=== PATIENT | female | born 1950 | race Caucasian/White ===

== ENCOUNTER 2017-11-03 21:44 | Inpatient (IN) | payer MEDICARE, BC ==
[~2017-11-03] VITALS: Ht 152.4 cm; Wt 70.3 kg
--- NOTE | 2017-11-03 22:19 | NUR ---
PT BB FAMILY FROM HOME C/C "I BROKE MY LT ANKLE WHILE IN [place] AND SPOKE TO DR. DESAI WHO WILL PERFORM MY SURGERY". PT IS AAOX4. PAIN 11/08 IN LT ANKLE. +CMS. VSS. NO S/S OF ACUTE DISTRESS NOTED. PT PLACED ON MONITOR AND POX. RESP EVEN AND UNLABORED. WILL CONTINUE TO MONITOR PT. AWATING MD FOR EVAL.
--- NOTE | 2017-11-03 22:30 | NUR ---
MARÍA ELENA ANDERSON PAGED PER DR HELMS.
[2017-11-03 22:57] LABS: BASOPHILS % (AUTO) 0.1 % (0.0-2.0); EOSINOPHILS % (AUTO) 4.4 % (0.0-6.0); LYMPHOCYTES # (AUTO) 0.7 /CMM (0.8-4.8); LYMPHOCYTES % (AUTO) 14.6 % (20.0-44.0); MEAN CORPUSCULAR HGB CONC 32 g/dl (31.0-36.0); MEAN CORPUSCULAR VOLUME 69 fL (82-100); MONOCYTES # (AUTO) 0.3 /CMM (0.1-1.30); NEUTROPHILS # (AUTO) 3.6 /CMM (1.8-8.9); NEUTROPHILS % (AUTO) 73.9 % (43.0-81.0); PLATELET COUNT (AUTO) 460 /CMM (150-450); RDW COEFFICIENT OF VARIATION 18.9 (11.5-15.0); RED BLOOD CELL COUNT(AUTO) 2.57 MIL/uL (4.0-5.2); WHITE BLOOD COUNT (AUTO) 4.8 K/uL (4.3-11.0)
[2017-11-03 23:05] LABS: HEMATOCRIT 18 % (33-45); HEMOGLOBIN 5.6 g/dL (11.5-14.8)
[2017-11-03 23:08] LABS: CALCIUM, SERUM 8.3 mg/dL (8.5-10.1); CREATININE 0.8 mg/dL (0.6-1.3); POTASSIUM 3.6 mmol/L (3.5-5.1)
[2017-11-03 23:13] LABS: INR 0.96 (0.87-1.13)
--- NOTE | 2017-11-03 23:16 | NUR ---
CALLED [facility]AD[facility]IREZ CHECKROOM ATTENDANT WAS PAGED.
--- NOTE | 2017-11-03 23:22 | NUR ---
CALLED [facility] FOR PANEL CALL AND JAMES EMMANUEL WAS PAGED.
[2017-11-03] MEDS ORDERED: ONDANSETRON HCL/PF 4 MG/2 ML VIAL ONE (23:40)
[2017-11-03] MEDS ORDERED: MORPHINE SULFATE INJ 4 MG/ML DISP.SYRIN ONE (23:40)
[2017-11-03 23:50] LABS: LYMPHOCYTES % (MANUAL) 22 % (16-48); MONOCYTES % (MANUAL) 4 % (0-11.0); NEUTROPHILS % (MANUAL) 72 (42-76)
[2017-11-03 23:51] LABS: EOSINOPHILS % (MANUAL) 2 % (0-4)
[2017-11-04] VITALS (15 sets, daily range): BP systolic 95–150; BP diastolic 48–80
[2017-11-04] MEDS ORDERED: MORPHINE SULFATE INJ 2 MG/ML DISP.SYRIN IV ONE
[2017-11-04] MEDS ORDERED: ONDANSETRON HCL/PF 4 MG/2 ML VIAL IV ONE
--- NOTE | 2017-11-04 00:20 | NUR ---
Patient is resting comfortably in bed with eyes closed. Easily aroused. VSS. BLANKETS PROVIDED TO PT.
--- NOTE | 2017-11-04 01:10 | NUR ---
BLOOD PRODUCTS AND PT VERIFIED WITH ADRY BLAKE. BLOOD TRANSFUSION STARTED AT 0110. VSS. BLOOD TRANSFUSION TEACHING PROVIDED TO PT. WILL CONTINUE TO MONITOR PT.
--- NOTE | 2017-11-04 01:12 | NUR ---
report given to soto thomas for continuaiton of care.
--- NOTE | 2017-11-04 01:25 | NUR ---
PT'S VSS. NO S/S OF BLOOD TRANSFUSION REACTIONS. WILL CONTINUE TO MONITOR PT.
--- NOTE | 2017-11-04 02:00 | NUR ---
TELE/RN OPENING NOTES PT RECEIVED TO UNIT FROM ER. A/OX4. BREATHING EVEN AND UNLABORED. NOTES PAIN 6/10 TO LEFT ANKLE. RECEIVED IV MORPHINE IN ER. DENIES SOB AT THIS TIME. IV TO LAC PATENT AND INTACT WITH ONGOING BLOOD TRANSFUSION AT 125ML/HR. NO S/S OF ADVERSE REACTION NOTED. ORIENTED PT TO ROOM AND CALL LIGHT. SIDE RAILS UPX2. BED IN LOW/LOCKED POSITION WITH CALL LIGHT IN REACH. WILL CONTINUE TO MONITOR Addendum: 11/04/17 at 0258 by RIGO OSORIO RN LEFT ANKLE SPLINTED AND ELEVATED ON PILLOW
[2017-11-04] MEDS ORDERED: SERT50TA PO (02:40)
[2017-11-04] MEDS ORDERED: METF-440 PO (02:40)
[2017-11-04] MEDS ORDERED: OMEP20CA10 PO (02:40)
[2017-11-04] MEDS ORDERED: TRAM1TAB PO (02:40)
[2017-11-04] MEDS ORDERED: ACET-907 PO (02:40)
[2017-11-04] MEDS ORDERED: IRBE1TAB41 PO (02:40)
[2017-11-04] MEDS ORDERED: RANI150T43 PO (02:40)
[2017-11-04] MEDS ORDERED: LIDO700A30 TP (02:40)
[2017-11-04] MEDS ORDERED: LORA-545 PO (02:40)
--- NOTE | 2017-11-04 02:57 | NUR ---
TELE/RN NOTES MEDRECON AND BELONGINGS LIST COMPLETED.
--- NOTE | 2017-11-04 03:21 | NUR ---
TELE/RN NOTES PAGED JAMES EMMANUEL FOR ADMITTING ORDERED. AWAITING CALL BACK
--- NOTE | 2017-11-04 03:40 | NUR ---
TELE/RN NOTES PAGED JAMES EMMANUEL AGAIN, AWAITING CALL BACK. PT C/O PAIN TO LEFT ANKLE 01/08
--- NOTE | 2017-11-04 03:54 | NUR ---
TELE/RN NOTES JAMES EMMANUEL CALLED BACK WITH ORDERS FOR MORPHINE 2MG IV Q3H PRN AND ZOFRAN 4MG IV Q4H PRN ORDERS NOTED AND READ BACK PER PROTOCOL, WILL CARRY OUT ORDERED. WILL INPUT REMAINING ADMITTING ORDERS
[2017-11-04] MEDS ORDERED: ONDANSETRON HCL/PF 4 MG/2 ML VIAL IV PRN (04:00)
[2017-11-04] MEDS: MORPHINE SULFATE INJ 2 MG/ML DISP.SYRIN IV PRN ×5 (04:08→22:06)
[2017-11-04] MEDS ORDERED: HYDROCODONE/APAP 10/325MG 1 EA TABLET PO PRN (04:30)
[2017-11-04] MEDS ORDERED: ONDANSETRON HCL/PF 4 MG/2 ML VIAL IVP PRN (04:30)
[2017-11-04] MEDS ORDERED: Z GUARD REMEDY 2 OZ OINT TP PRN (04:30)
[2017-11-04] MEDS ORDERED: ACETAMINOPHEN W/ CODEINE#3 1 EA TABLET PO PRN (04:30)
[2017-11-04] MEDS ORDERED: ACETAMINOPHEN 325 MG TABLET PO PRN (04:30)
--- NOTE | 2017-11-04 04:40 | NUR ---
MS/RN NOTES 1 UNIT OF PRBC COMPLETED. PAPERFORM COMPLETED AND PLACED IN THE CHART. PT WITH NO ADVERSE REACTIONS. YL=014/61, HR=65, RR=18, T=98.0, SPO2 97% ON 2L O2. PAIN TO LEFT ANKLE NOTED AT 5/10, PT IS COMFORTABLE AT THIS TIME
[2017-11-04 07:24] LABS: BASOPHILS % (AUTO) 0.6 % (0.0-2.0); EOSINOPHILS % (AUTO) 4.2 % (0.0-6.0); HEMATOCRIT 21 % (33-45); LYMPHOCYTES # (AUTO) 0.6 /CMM (0.8-4.8); LYMPHOCYTES % (AUTO) 14.6 % (20.0-44.0); MEAN CORPUSCULAR HGB CONC 32 g/dl (31.0-36.0); MEAN CORPUSCULAR VOLUME 71 fL (82-100); MONOCYTES # (AUTO) 0.3 /CMM (0.1-1.30); MONOCYTES % (AUTO) 7.1 % (2.0-12.0); NEUTROPHILS # (AUTO) 3.1 /CMM (1.8-8.9); NEUTROPHILS % (AUTO) 73.5 % (43.0-81.0); PLATELET COUNT (AUTO) 458 /CMM (150-450); RDW COEFFICIENT OF VARIATION 18.9 (11.5-15.0); RED BLOOD CELL COUNT(AUTO) 2.98 MIL/uL (4.0-5.2); WHITE BLOOD COUNT (AUTO) 4.2 K/uL (4.3-11.0)
[2017-11-04 07:36] LABS: HEMOGLOBIN 6.8 g/dL (11.5-14.8)
[2017-11-04 07:39] LABS: IRON, SERUM 37 ug/dl (50-175); TOTAL IRON BINDING CAPACITY 439 ug/dl (250-450)
--- NOTE | 2017-11-04 07:39 | NUR ---
RN MS OPENING NOTES RECEIVED PATIENT IN BED AWAKE. ALERT AND ORIENTED X4. VERBALLY RESPONSIVE, ABLE TO MAKE NEEDS KNOWN. BREATHING EVEN AND UNLABORED - ON 2L OF OXYGEN VIA NC - O2SAT 98%. COMPLAINED OF PAIN 5/10 ON THE LEFT ANKLE BUT DOES NOT WANT PAIN MEDICATION AT THE MOMENT. IV TO LAC PATENT AND INTACT WITH ONGOING BLOOD TRANSFUSION AT 100ML/HR. NO S/S OF ADVERSE REACTION NOTED. VITAL SIGNS STABLE. BP 104/48, HR 67, RR 20, TEMP 98.5F. SAFETY PRECAUTIONS IN PLACE. BED IN LOW LOCKED POSITION. CALL LIGHT WITHIN EASY REACH. WILL CONTINUE TO MONITOR.
--- NOTE | 2017-11-04 07:40 | NUR ---
MS/RN CLOSING NOTES PT AWAKE, A/OX4. PLACED ON 2L O2 VIA NC FOR O2 SUPPORT, BREATHING EVEN AND UNLABORED. DENIES SOB. PER ER NURSE, PT DESATTED TOO 88% POST MORPHINE ADMINISTRATION. NOTES PAIN TO LEFT ANKLE 5/10, DOES NOT WANT PAIN MEDICATION AT THIS TIME. WILLING TO WAIT FOR ANOTHER HOUR. EDUCATION PROVIDED ON PAIN MANAGEMENT, PT VERBALIZED UNDERSTANDING. LEFT ANKLE WITH SPLINT AND ELEVATED ON PILLOW. 2ND UNIT OF PRBC CURRENTLY INFUSING TO LAC AT 100ML/HR. PT TOLERATING, NO ADVERSE REACTIONS NOTED. PT HAS 1 MORE UNIT OF PRBC'S ORDERED. ALL NEEDS MET. BED IN LOW/LOCKED POSITION WITH CALL LIGHT IN REACH. SIDE RAILS UPX2. ENDORSED TO DAY SHIFT RN GABY.
[2017-11-04 08:18] LABS: ALBUMIN 3.1 g/dL (3.4-5.0); BILIRUBIN,TOTAL 0.4 mg/dL (0.2-1.0); PHOSPHORUS 2.7 mg/dL (2.5-4.9); POTASSIUM 3.9 mmol/L (3.5-5.1); TOTAL PROTEIN, SERUM 6.4 g/dL (6.4-8.2)
[2017-11-04 08:45] LABS: CREATININE 0.8 mg/dL (0.6-1.3)
[2017-11-04 09:28] LABS: EOSINOPHILS % (MANUAL) 3 % (0-4); LYMPHOCYTES % (MANUAL) 11 % (16-48); MONOCYTES % (MANUAL) 3 % (0-11.0); NEUTROPHILS % (MANUAL) 83 (42-76)
[2017-11-04 09:38] LABS: THYROID STIMULATING HORMONE 5.611 uIU/mL (0.358-3.74)
[2017-11-04] MEDS: LORATADINE 10 MG TABLET PO SCH (09:49)
[2017-11-04] MEDS: TRAMADOL HCL 50 MG TABLET PO PRN ×2 (13:36→19:38)
[2017-11-04] MEDS: IV NS 0.9% 1,000 ML IV PRN (16:24)
[2017-11-04] MEDS: SOD FERRIC GLUC 125 MG in IV NS 0.9% 100 ML IV SCH (16:24)
[2017-11-04] MEDS: LIDOCAINE 5% (PATCH) 1 EA PATCH TP SCH (17:18)
[2017-11-04] MEDS ORDERED: SERTRALINE HCL 50 MG TABLET PO ONE (17:30)
--- NOTE | 2017-11-04 18:56 | NUR ---
RN MS CLOSING NOTES PATIENT AWAKE AND ORIENTED X4. CURRENTLY ON ROOM AIR WITH O2SAT 98%. WILL PUT NASAL CANNULA FOR SUPPORT WHEN SHE DESIRES. FREQUENT COMPLAINTS OF LEFT ANKLE PAIN 03/10. LAST MORPHINE GIVEN WAS 1815 - PATIENTS STATES EFFECTIVE. TRANSFUSED LAST 1 UNIT OF PRBC. TOLERATED WELL. RETA CAME FOR ORTHO CONSULT. PATIENT DECIDED TO DO SURGICAL FIXATION ON THE LEFT ANKLE WITH DR. INGRAM - STILL WAITING ON ORDERS. CBC AND LIPID PANEL SCHEDULED FOR TOMORROW AM. MEDICATIONS FROM HOME RESUMED WITH MD'S APPROVAL EXCEPT FOR METFORMIN. IN ON LEFT AC #18. INTACT AND PATENT. INFUSING NS @ 75ML/HR. ALL OTHER NEEDS ATTENDED TO. KEPT CLEAN DRY AND COMFORTABLE. SAFETY PRECAUTIONS IN PLACE. BED IN LOWEST LOCKED POSITION. CALL LIGHT WITHIN EASY REACH. WILL ENDORSE TO ONCOMING RN FOR CONTINUITY OF CARE.
--- NOTE | 2017-11-04 19:15 | NUR ---
MS/RN OPENING NOTES PT RECEIVED LAYING IN BED WITHE EYES CLOSED. FAMILY AT BEDSIDE. A/OX4. CURRENTLY ON ROOM AIR, DENIES SOB, BREATHING EVEN AND UNLABORED. C/O PAIN 8/10 TO LEFT ANKLE, REQUESTING PAIN MEDICATION. PT REQUESTING ULTRAM WHEN DUE. NWB TO LLE. DR. EARL AT BEDSIDE TO ASSESS PT. IV TO LAC PATENT AND INTACT RUNNING IVF ORDERED. PT FOR SURGERY TOMORROW WITH DR. EARL. PT AWARE AND VERBALIZES UNDERSTANDING. CONSENTS TO BED SIGNED BY PT. PT AWARE OF NPO STATUS POST MIDNIGHT. BED IN LOW/LOCKED POSITION WITH CALL LIGHT IN REACH. SIDE RAILS UPX2. WILL CONTINUE TO MONITOR
[2017-11-04 19:42] LABS: BASOPHILS % (AUTO) 0.1 % (0.0-2.0); HEMATOCRIT 28 % (33-45); HEMOGLOBIN 9.1 g/dL (11.5-14.8); LYMPHOCYTES # (AUTO) 0.7 /CMM (0.8-4.8); LYMPHOCYTES % (AUTO) 11.8 % (20.0-44.0); MEAN CORPUSCULAR HGB CONC 32 g/dl (31.0-36.0); MEAN CORPUSCULAR VOLUME 74 fL (82-100); MONOCYTES # (AUTO) 0.4 /CMM (0.1-1.30); MONOCYTES % (AUTO) 5.8 % (2.0-12.0); NEUTROPHILS # (AUTO) 4.8 /CMM (1.8-8.9); NEUTROPHILS % (AUTO) 78.3 % (43.0-81.0); PLATELET COUNT (AUTO) 477 /CMM (150-450); RDW COEFFICIENT OF VARIATION 19.4 (11.5-15.0); RED BLOOD CELL COUNT(AUTO) 3.86 MIL/uL (4.0-5.2); WHITE BLOOD COUNT (AUTO) 6.1 K/uL (4.3-11.0)
[2017-11-04] MEDS: MAG HYDROX/AL HYDROX/SIMETH 30 ML UDC PO PRN (20:22)
--- NOTE | 2017-11-04 20:24 | NUR ---
MS/RN NOTES PT DOWN FOR CT
--- NOTE | 2017-11-04 20:25 | NUR ---
MS/RN NOTES DR. EARL CALLED. INFORMED HIM THAT PT JUST WENT DOWN FOR CT OF ANKLE. ASKED IF HE WANTED ME TO NOTIFY HIM OF RESULTS OF CT AND STAT CBC HE ORDERED. HE SAID HE WOULD TAKE A LOOK AT THEM ON HIS OWN. NO NEW ORDERS
--- NOTE | 2017-11-04 21:55 | NUR ---
MS/RN NOTES PT RETURNED FROM CT IN STABLE CONDITION. Addendum: 11/04/17 at 2230 by RIGO OSORIO RN *WRONG TIME- PT RETURNED AT 2054*
[2017-11-05] MEDS: MORPHINE SULFATE INJ 2 MG/ML DISP.SYRIN IV PRN ×2 (01:34→06:34)
[2017-11-05] MEDS: TRAMADOL HCL 50 MG TABLET PO PRN (05:03)
[2017-11-05 06:20] LABS: BASOPHILS % (AUTO) 0.2 % (0.0-2.0); EOSINOPHILS % (AUTO) 2.6 % (0.0-6.0); HEMATOCRIT 28 % (33-45); HEMOGLOBIN 8.9 g/dL (11.5-14.8); LYMPHOCYTES # (AUTO) 0.7 /CMM (0.8-4.8); LYMPHOCYTES % (AUTO) 9.2 % (20.0-44.0); MEAN CORPUSCULAR HGB CONC 32 g/dl (31.0-36.0); MEAN CORPUSCULAR VOLUME 74 fL (82-100); MONOCYTES # (AUTO) 0.4 /CMM (0.1-1.30); MONOCYTES % (AUTO) 5.9 % (2.0-12.0); NEUTROPHILS % (AUTO) 82.1 % (43.0-81.0); PLATELET COUNT (AUTO) 486 /CMM (150-450); RDW COEFFICIENT OF VARIATION 19.6 (11.5-15.0); RED BLOOD CELL COUNT(AUTO) 3.73 MIL/uL (4.0-5.2); WHITE BLOOD COUNT (AUTO) 7.3 K/uL (4.3-11.0)
[2017-11-05 06:30] LABS: ALBUMIN 2.9 g/dL (3.4-5.0); BILIRUBIN,TOTAL 0.3 mg/dL (0.2-1.0); CALCIUM, SERUM 8.2 mg/dL (8.5-10.1); CREATININE 0.7 mg/dL (0.6-1.3); PHOSPHORUS 2.4 mg/dL (2.5-4.9); POTASSIUM 3.8 mmol/L (3.5-5.1); TOTAL PROTEIN, SERUM 6.2 g/dL (6.4-8.2)
[2017-11-05 06:43] LABS: THYROID STIMULATING HORMONE 2.325 uIU/mL (0.358-3.74)
--- NOTE | 2017-11-05 06:55 | NUR ---
MS/RN CLOSING NOTES PT AWAKE, A/OX4. ENCOURAGED PT TO KEEP 2L O2 VIA NC, BREATHING EVEN AND UNLABORED. DENIES SOB. PAIN MEDICATION PROVIDED THROUGHOUT SHIFT. IV TO LAC INFILTRATED. REINSERTED TO RFA #20, IVF INFUSING ORDERED. PT FOR LEFT ANKLE ORIF TODAY AT [address] EARL. PT AWARE, CONSENTS SIGNED, CHECKLIST COMPLETED AND IN THE CHART. PT KEPT NPO POST MIDNIGHT. LIDOCAINE PATCH REMOVED ORDERED. BED REMAINS IN LOW/LOCKED POSITION WITH CALL LIGHT IN REACH. SIDE RAILS UPX2. WILL ENDORSE TO DAY SHIFT RN GABY.
[2017-11-05] MEDS: PANTOPRAZOLE 40 MG TABLET.DR PO SCH ×2 (07:30→12:52)
--- NOTE | 2017-11-05 07:42 | NUR ---
RN OPENING NOTES RECEIVED PT. PT IS STABLE AND RESTING IN BED. A/OX4. NO S/S OF RESP DISTRESS/SOB. PT HAS C/O PAIN ON L ANKLE, RECENTLY MANAGED WITH ICE THERAPY/MEDICATION, WILL CONTINUE TO MONITOR. SCHEDULED FOR SX FOR LEFT ANKLE REPAIR TODAY , 11/05/17. CONSENT AND CHECKLIST COMPLETED. SAFETY MEASURES IN PLACE, CALL LIGHT IN REACH. WILL CONTINUE TO MONITOR.
[2017-11-05 08:00] VITALS: BP 128/62
--- NOTE | 2017-11-05 08:30 | NUR ---
RN NOTES PT TAKEN TO OR BY PRE-OP STAFF FOR LEFT ANKLE ORIF. PT LEFT UNIT IN [facility] ACCOMPANIED BY SURGERY STAFF.
[2017-11-05] MEDS: SERTRALINE HCL 50 MG TABLET PO SCH ×2 (09:00→20:33)
[2017-11-05] MEDS: LOSARTAN/HCTZ 50-12.5MG/ 1 EA TABLET PO SCH (09:00)
[2017-11-05] MEDS: LORATADINE 10 MG TABLET PO SCH (09:00)
[2017-11-05] MEDS ORDERED: BACITRACIN 50000 UNITS/VIAL ONE (09:21)
[2017-11-05] MEDS ORDERED: BUPIVACAINE 0.25% 75 MG/30 ML VIAL ONE (09:21)
[2017-11-05] MEDS ORDERED: MORPHINE SULFATE INJ 4 MG/ML DISP.SYRIN IV PRN ×2 (09:30→11:00)
[2017-11-05] MEDS ORDERED: HYDROMORPHONE INJ 2 MG/ML DISP.SYRIN ONE (10:04)
[2017-11-05 11:30] VITALS: BP 112/63
[2017-11-05] MEDS: MAG HYDROX/AL HYDROX/SIMETH 30 ML UDC PO PRN (11:46)
[2017-11-05] MEDS: ACETAMINOPHEN 325 MG TABLET PO SCH ×2 (11:51→18:00)
[2017-11-05] MEDS: SOD FERRIC GLUC 125 MG in IV NS 0.9% 100 ML IV SCH (14:58)
[2017-11-05 16:00] VITALS: BP 117/64
[2017-11-05] MEDS ORDERED: K PHOS NEUTRAL 250 MG TABLET PO ONE (16:00)
[2017-11-05] MEDS: ANCEF 1 GM/50 ML D5W IV SCH ×2 (16:32)
[2017-11-05] MEDS: LIDOCAINE 5% (PATCH) 1 EA PATCH TP SCH (16:41)
--- NOTE | 2017-11-05 18:43 | NUR ---
RN CLOSING NOTES PT IS IN BED RESTING. NO S/S OF RESP DISTRESS OR SOB. PT HAS C/O CONSTIPATION, WILL F/U WITH MD FOR STOOL SOFTENER REQUEST. PT PAIN MANAGED WITH IVP MORPHINE 4MG LAST GIVEN AT 1630. PT IS S/P L ANKLE REDUCTION, EXTERNAL FIXATION TO BE PERFORMED NEXT WEEK ON /. CONT IV ABX AND PAIN MANAGEMENT UNTIL THEN. SAFETY MEASURES IN PLACE, CALL LIGHT WITHIN REACH. WILL ENDORSE TO EXTERNAL GRINDER FOR GABY.
--- NOTE | 2017-11-05 19:30 | NUR ---
RN NOTES RECEIVED PATIENT IN AWAKE. AO X 3, ABLE TO MAKE NEEDS KNOWN. NO ACUTE DISTRESS NOTED. DENIES ANY PAIN AT THIS TIME. LEFT FOOT WITH RODS DUE TO EXTERNAL FIXATION DONE 11/05/17. LEFT FOOT ELEVATED ORDERED. IV SITE PATENT, INTACT; IVF INFUSING ORDERED. ON LOW BED WITH BILATERAL UPPER SIDE RAILS UP. CALL CARR WITHIN EASY REACH. WILL CONTINUE TO MONITOR.
[2017-11-05 20:00] VITALS: BP 140/76
--- NOTE | 2017-11-05 21:23 | NUR ---
RN NOTES PATIENT C/O 11/08 LEFT FOOT PAIN. MONICA JUSTIN MADE AWARE WITH NEW ORDER TO CHANGE MORPHINE 4 MG IV TO Q 4 HOURS, NOTED AND CARRIED OUT. PATIENT MADE AWARE.
[2017-11-05] MEDS: MORPHINE SULFATE INJ 4 MG/ML DISP.SYRIN IV PRN (21:42)
[2017-11-06] MEDS: ANCEF 1 GM/50 ML D5W IV SCH ×4 (01:00→08:05)
[2017-11-06] MEDS: IV NS 0.9% 1,000 ML IV PRN (02:43)
[2017-11-06] MEDS: MORPHINE SULFATE INJ 4 MG/ML DISP.SYRIN IV PRN ×3 (02:49→15:42)
--- NOTE | 2017-11-06 05:51 | NUR ---
RN NOTES RECEIVED PATIENT IN AWAKE. AO X 3, ABLE TO MAKE NEEDS KNOWN. NO ACUTE DISTRESS NOTED. DENIES ANY PAIN AT THIS TIME. LEFT FOOT WITH RODS DUE TO EXTERNAL FIXATION DONE 11/05/17. LEFT FOOT ELEVATED ORDERED. IV SITE PATENT, INTACT; IVF INFUSING ORDERED. ON LOW BED WITH BILATERAL UPPER SIDE RAILS UP. CALL CARR WITHIN EASY REACH. WILL CONTINUE TO MONITOR. Addendum: 11/06/17 at 0553 by DARRIUS SOUSA RN CORRECT TIME: 11/05/171929
[2017-11-06] MEDS: ACETAMINOPHEN 325 MG TABLET PO SCH ×5 (06:00→23:28)
--- NOTE | 2017-11-06 06:36 | NUR ---
RN NOTES PATIENT ASLEEP, EASILY AROUSABLE. RESPIRATIONS EVEN. NO SIGNS OF PAIN NOTED. IVF INFUSING ORDERED. LEFT FOOT ELEVATED; IN FUNCTIONAL ALIGNMENT. DUE MED GIVEN WITH NO ASE NOTED. NEEDS ATTENDED. KEPT CLEAN, DRY, AND COMFORTABLE. SAFETY PRECAUTIONS AND COMFORT MEASURES IN PLACE. WILL GIVE REPORT TO DAY SHIFT FOR CONTINUITY OF CARE.
[2017-11-06 07:07] LABS: BASOPHILS % (AUTO) 0.3 % (0.0-2.0); EOSINOPHILS % (AUTO) 0.9 % (0.0-6.0); HEMATOCRIT 27 % (33-45); HEMOGLOBIN 8.5 g/dL (11.5-14.8); LYMPHOCYTES # (AUTO) 0.5 /CMM (0.8-4.8); LYMPHOCYTES % (AUTO) 6.6 % (20.0-44.0); MEAN CORPUSCULAR HGB CONC 32 g/dl (31.0-36.0); MEAN CORPUSCULAR VOLUME 77 fL (82-100); MONOCYTES # (AUTO) 0.4 /CMM (0.1-1.30); MONOCYTES % (AUTO) 5.7 % (2.0-12.0); NEUTROPHILS # (AUTO) 6.7 /CMM (1.8-8.9); NEUTROPHILS % (AUTO) 86.5 % (43.0-81.0); PLATELET COUNT (AUTO) 488 /CMM (150-450); RDW COEFFICIENT OF VARIATION 20.4 (11.5-15.0); RED BLOOD CELL COUNT(AUTO) 3.47 MIL/uL (4.0-5.2); WHITE BLOOD COUNT (AUTO) 7.7 K/uL (4.3-11.0)
--- NOTE | 2017-11-06 07:10 | NUR ---
RN NOTES PT IS LAYING DOWN IN BED, RESTING COMFORTABLY. PT ON RA, RESPIRATIONS ARE EVEN AND UNLABORED. IV ON RFA INTACT AND RUNNING NS @ 75ML/HR. SURGICAL SITE IS CLEAN AND DRY, NO SIGNS OF INFECTION NOTED. NO SIGNS OF DISTRESS NOTED. SAFETY MEASURES ARE IN PLACE, CALL LIGHT IS IN REACH. WILL CONTINUE TO MONITOR.
[2017-11-06 07:35] LABS: CALCIUM, SERUM 8.2 mg/dL (8.5-10.1); CREATININE 0.7 mg/dL (0.6-1.3); PHOSPHORUS 2.6 mg/dL (2.5-4.9); POTASSIUM 4.1 mmol/L (3.5-5.1)
[2017-11-06 08:00] VITALS: BP 125/78
[2017-11-06] MEDS: PANTOPRAZOLE 40 MG TABLET.DR PO SCH (08:04)
[2017-11-06] MEDS: SERTRALINE HCL 50 MG TABLET PO SCH (08:05)
[2017-11-06] MEDS: LORATADINE 10 MG TABLET PO SCH (08:07)
[2017-11-06] MEDS: LOSARTAN/HCTZ 50-12.5MG/ 1 EA TABLET PO SCH (08:07)
[2017-11-06] MEDS: ENOXAPARIN SODIUM 40 MG/0.4 ML DISP.SYRIN SQ SCH (08:09)
[2017-11-06 08:13] VITALS: BP 125/78
[2017-11-06] MEDS ORDERED: AVALIDE PO SCH (09:00)
[2017-11-06] MEDS: TRAMADOL HCL 50 MG TABLET PO PRN ×2 (11:52→20:29)
[2017-11-06] MEDS ORDERED: MAGNESIUM HYDROXIDE 30 ML UDC PO PRN (12:00)
[2017-11-06 13:19] LABS: *HGBFR CHEMOGLOBIN SOLUBILITY Negative (Negative); *HGBFRC HEMOGLOBIN A 98.3 % (96.4-98.8); *HGBFRC HEMOGLOBIN A2 1.7 % (1.8-3.2)
[2017-11-06] MEDS: SOD FERRIC GLUC 125 MG in IV NS 0.9% 100 ML IV SCH (14:25)
[2017-11-06] MEDS: LIDOCAINE 5% (PATCH) 1 EA PATCH TP SCH (16:50)
--- NOTE | 2017-11-06 18:43 | NUR ---
RN NOTES PT IS LAYING DOWN IN BED, AWAKE AND ALERT, RESTING COMFORTABLY. PT ON 2L O2, RESPIRATIONS ARE EVEN AND UNLABORED. IV ON RFA INTACT AND SL, PER PT REQUEST, DOES NOT WANT IV FLUIDS AT THIS TIME. ENCOURAGED ORAL INTAKE. MEDS GIVEN ORDERED AND ALL PT NEEDS MET. MORPHINE GIVEN FOR PAIN CONTROL, PT STATES PAIN IS A 3, TOLERABLE AT THIS TIME. DR. EARL SAW SURGICAL SITE AND CONSULTED PT ABOUT 2ND SURGERY, POSSIBLY ON THURSDAY. DRESSING CHANGE WAS DONE PER DR. EARL'S ORDER. NO SIGNS OF INFECTION NOTED AT SURGICAL MARINA SITES. PER DR. EARL, PT IS ABLE TO GET UP IN WHEELCHAIR WITH ASSISTANCE, WITH ANKLE ELEVATED IN CHAIR. NO SIGNS OF DISTRESS NOTED WITH PT. SAFETY MEASURES ARE IN PLACE, CALL LIGHT IS IN REACH. WILL CONTINUE TO MONITOR.
--- NOTE | 2017-11-06 19:15 | NUR ---
MS RN OPENING NOTES: RECEIVED PT IN BED AND IS ON 2LPM VIA NC. PT IS AWAKE AND IS RESTING AT THIS TIME. PT IS A/OX4. PT HAS IV ON RIGHT FOREARM #20G BUT DOES NOT WANT TO BE CONNECTED TO IV FLUIDS AT THIS TIME. EXPLAINED TO PT RISKS AND BENEFITS AND PT STILL REFUSING. WILL TRY AT ANOTHER TIME. PT HAS RODS ON L FOOT. CALL LIGHT WITHIN PT'S REACH. BED KEPT IN LOW, LOCKED POSITION, AND SIDE RAILS X 2UP. WILL CONTINUE TO MONITOR PT.
[2017-11-06 20:00] VITALS: BP 134/72
--- NOTE | 2017-11-06 20:32 | NUR ---
MS RIDER NOTES: PT COMPLAINING OF 5/10 ANKLE PAIN AND REQUESTED FOR TRAMADOL. PT WAS ADMINISTERED TRAMADOL 50MG PO. WILL CONTINUE TO MONITOR PT. Addendum: 11/06/17 at 2032 by TIFF SHAFER RN L ANKLE PAIN.
--- NOTE | 2017-11-06 23:29 | NUR ---
MS RN NOTES: PT REFUSING TYLENOL. EXPLAINED TO PT RISKS AND BENEFITS OF MED X3. PT STILL REFUSING. INFORMED HER THAT WE WILL HAVE TO MONITOR HER TEMP WELL. PT UNDERSTOOD.
[2017-11-07] MEDS: TRAMADOL HCL 50 MG TABLET PO PRN ×4 (00:40→21:13)
--- NOTE | 2017-11-07 00:40 | NUR ---
MS RN NOTES: PT COMPLAINING OF 5/10 R ANKLE PAIN. PT WAS ADMINISTERED TRAMADOL 50MG PO. WILL CONTINUE TO MONITOR PT.
[2017-11-07] MEDS: ACETAMINOPHEN 325 MG TABLET PO SCH ×3 (05:43→18:00)
--- NOTE | 2017-11-07 06:47 | NUR ---
MS RN CLOSING NOTES: ALL NEEDS WERE ATTENDED AND ANTICIPATED FOR. PT ON ROOM AIR AND TOLERATING WELL. PT KEPT CLEAN, DRY, AND COMFORTABLE. PT HAS IV AND REMAINS INTACT. PT STILL REFUSING TO BE CONNECTED TO IV FLUIDS SHE IS HYDRATING AND DRINKING WATER PO. XEROFORM AND KERLIX REMAINS ON L FOOT AROUND SURGICAL RODS. PT IS A/OX4 AND RESTING IN BED AT THIS TIME. CALL LIGHT WITHIN PT'S REACH. BED KEPT IN LOW, LOCKED POSITION, AND SIDE RAILS X 2UP. WILL ENDORSE TO AM NURSE FOR GABY.
[2017-11-07] MEDS: PANTOPRAZOLE 40 MG TABLET.DR PO SCH (07:32)
[2017-11-07 08:00] VITALS: BP 154/81
[2017-11-07] MEDS: LORATADINE 10 MG TABLET PO SCH (08:00)
[2017-11-07] MEDS: SERTRALINE HCL 50 MG TABLET PO SCH (08:07)
[2017-11-07] MEDS: ENOXAPARIN SODIUM 40 MG/0.4 ML DISP.SYRIN SQ SCH (08:08)
--- NOTE | 2017-11-07 08:16 | NUR ---
RN OPENING NOTES RECEIVED PT. IN BED A&OX4. BREATHING UNLABORED, AND EVENLY ON ROOM AIR. NO S/S OF ACUTE DISTRESS. PT. DENIES PAIN. IV ACCESS ON RIGHT FOREARM INTACT. PT. HAS A DVT PUMP ON RIGHT LE. PT. WAS SEEN AND EXAMINED BY [employer] INTEGRATION DEVELOPER. PT. HAS AN EXTERNAL FIXATOR ON THE LEFT LOWER EXTREMITY POST OP 11/05/17. BED IS IN LOWEST, AND LOCKED POSITION. 2 SIDE RAILS UP. INSTRUCTED PT. TO USE CALL LIGHT FOR ASSISTANCE. ALL NEEDS MET. WILL CONTINUE TO ASSESS AND MONITOR.
--- NOTE | 2017-11-07 08:46 | NUR ---
RN NOTES PT. WAS TRANSFERRED FROM BED TO CHAIR WITHOUT COMPLICATIONS. PT. LEFT LEG WAS COMPLETELY IMMOBILIZED AND WAS SUPPORTED DURING TRANSFER. LEFT LEG CONTINUED TO STAY ELEVATED IN SITTING POSITION.
--- NOTE | 2017-11-07 09:41 | NUR ---
RN NOTES PT. WAS TRANSFERRED BACK INTO BED 3 PERSON ASSIST, WITHOUT COMPLICATIONS. ALL NEEDS MET. PT.'S LEFT LEG WAS ELEVATED ON 2 PILLOWS. PT. USED THE BEDSIDE COMMODE BEFORE TRANSFER, AND HAD ONE SMALL BM.
--- NOTE | 2017-11-07 10:27 | NUR ---
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 She wants to wait to speak to keo. Ghada MERCADO.
[2017-11-07] MEDS: SOD FERRIC GLUC 125 MG in IV NS 0.9% 100 ML IV SCH (14:24)
[2017-11-07 16:00] VITALS: BP 121/65
[2017-11-07] MEDS: LIDOCAINE 5% (PATCH) 1 EA PATCH TP SCH (16:15)
--- NOTE | 2017-11-07 19:35 | NUR ---
MS RN OPENING NOTES: PATIENT IN BED, AOX4, ON O2 AT 2 LPM VIA NC, BREATHING EVEN AND UNLABORED, BREATH SOUNDS CLEAR TO AUSCULTATION. PATIENT APPEARS CALM AND IN NO DISTRESS, DENIES PAIN. PIV OVER RFA G20 INTACT AND PATENT TO FLUSH. NOTED LEFT LOWER LEG WITH METAL FIXATORS, WITH CLEAN AND INTACT DRESSING, ELEVATED ON 2 PILLOWS. APPLIED ICE PACK. PROVIDED FOR COMFORT AND SAFETY. BED IN LOWEST AND LOCKED POSITION, SIDERAILS UP X 3, CALL LIGHT WITHIN REACH. WILL CONT TO MONITOR.
--- NOTE | 2017-11-07 19:37 | NUR ---
RN CLOSING NOTES PT. IS IN BED A&OX4. BREATHING UNLABORED, AND EVENLY ON OXYGEN 2L/MIN VIA NASAL CANNULA. NO S/S OF ACUTE DISTRESS. PT. DENIES PAIN. IV ACCESS ON RIGHT FOREARM INTACT. PT. HAS A DVT PUMP ON RIGHT LE. PT.'S EXTERNAL FIXATOR ON THE LEFT LOWER EXTREMITY DRESSING WAS CHANGED. BED IS IN LOWEST, AND LOCKED POSITION. 2 SIDE RAILS UP, AND INSTRUCTED PT. TO USE CALL LIGHT FOR ASSISTANCE. ALL NEEDS MET. WILL ENDORSE REPORT TO NURSE.
[2017-11-07 20:00] VITALS: BP 171/91
--- NOTE | 2017-11-07 20:01 | NUR ---
PT. PROVIDED HER BLOOD PRESSURE MEDICATION. IRBESARTAN/HTCZ 300-12.5 MG. ENDORSED TO DORON RIDER, AND MEDICATION WILL BE BROUGHT TO PHARMACY TOMORROW MORNING.
[2017-11-07 21:00] VITALS: BP 188/86
[2017-11-07 21:10] VITALS: BP 165/90
--- NOTE | 2017-11-07 21:13 | NUR ---
RN NOTES: PATIENT'S BP RECHECKED, ELEVATED STILL AT 188/86, MANUAL BP CHECKED OVER HER LEFT RADIAL ARTERY, 165/90. PER PATIENT, SHE DOES NOT FEEL ANY SYMPTOMS OF ELEVATED BP, BECAUSE SHE USUALLY STATES THAT SHE FEELS NECK PAIN WHEN HER BP IS HIGH. PT REQUESTING TO TAKE HER HOME MED OF AVALIDE PO. PER PT THAT IS WHAT SHE DOES AT HOME WHEN BP IS ELEVATED. CALLED DR EMMANUEL, AWAITING CALL BACK
--- NOTE | 2017-11-07 21:33 | NUR ---
RN NOTES: RECEIVED CALL BACK FROM DR EMMANUEL, ORDER GIVEN FOR 1 AVALIDE 300- 12.5 MG TAB PO NOW (HOME MEDICATION). NO OTHER MEDICATION ORDERED, PER DR EMMANUEL, CHECK BP AGAIN IN 4 HRS, BUT NO OTHER BP MEDICATION SHOULD BE ORDERED IN ORDER TO PREVENT PATIENT'S BP FROM BOTTOMING OUT. NOTED AND CARRIED OUT.
[2017-11-07] MEDS ORDERED: HOME MED MISCELLANEOUS XX ONE (22:00)
--- NOTE | 2017-11-07 22:00 | NUR ---
RN NOTES: LIDA, [employer] MANAGER PHARMACIST, CALLED TO ASK TO VERIFY HOME MEDICATION, HOWEVER, SHE SAID IT CAN ONLY BE VERIFIED BY REGULAR PHARMACIST IN AM. SHE RECOMMENDED INSTEAD TO PLACE ORDER FOR IRBESARTAN AND HCTZ OF SAME DOSES, RESPECTIVELY, TWO SEPARATE ORDERS. HOWEVER, SINCE PATIENT REQUESTED TO TAKE HER OWN HOME MED OF AVALIDE (IRBESARTAN/ HCTZ 300-12.5 MG/ TAB), SHE WAS ASKED IF OK WITH HER TO TAKE THE 2 SEPARATE MEDS WHICH ARE FORMULARY. PATIENT STATED THAT SHE PREFERS TO TAKE HER OWN AVALIDE, AND SINCE DR JAMES EMMANUEL IS AWARE, SHE TOOK HER OWN MEDICATION (1 TAB AVALIDE 300-12.5 MG PO). WILL CONT TO MONITOR BP .
[2017-11-07] MEDS ORDERED: IRBESARTAN (150MG) 150 MG TABLET PO ONE (22:30)
[2017-11-07] MEDS ORDERED: HYDROCHLOROTHIAZIDE 25 MG TABLET PO ONE (22:30)
[2017-11-08 00:45] VITALS: BP 169/89
[2017-11-08] MEDS ORDERED: IRBE1TAB43 PO (04:25)
[2017-11-08] MEDS: TRAMADOL HCL 50 MG TABLET PO PRN ×3 (04:46→21:28)
--- NOTE | 2017-11-08 04:50 | NUR ---
RN NOTES: RECHECKED PATIENT'S STILL ELEVATED BP AT 174 /90, HR: 57 TO 60. O2 SAT: 96% ON O2 AT 2 LPM VIA NC. RECHECKED AT R ARM 180/79. PATIENT COMPLAINS OF LEFT ANKLE PAIN SCALED AT 7-8, GAVE TRAMADOL [address] EMMANUEL RE BP FOR FURTHER ORDERS.
[2017-11-08] MEDS ORDERED: hydrALAZINE HCL 50 MG TABLET PO PRN (05:30)
--- NOTE | 2017-11-08 05:39 | NUR ---
RN NOTES: DR EMMANUEL ORDERED FOR HYDRALAZINE 50 MG PO Q 6 HRS PRN FOR SBP> 165 MMHG ,AND TO RECHECK AT 0800 AM. NOTED AND CARRIED OUT.
[2017-11-08] MEDS: ACETAMINOPHEN 325 MG TABLET PO SCH ×5 (06:00→23:41)
--- NOTE | 2017-11-08 06:53 | NUR ---
MS RN CLOSING NOTES PATIENT IN BED, AOX4, ON O2 AT 2 LPM VIA NC, BREATHING EVEN AND UNLABORED. APPEARS CALM AND IN NO DISTRESS. LEFT LEG WITH EXTERNAL FIXATORS, MAINTAINED ELEVATED ON 2 PILLOWS, WITH ICE PACK APPLIED. DUE MEDS GIVEN. PROVIDED FOR COMFORT AND SAFETY. BED IN LOWEST AND LOCKED POSITION, SIDERAILS UP X 3, CALL LIGHT WITHIN REACH. WILL ENDORSE TO AM RN FOR GABY.
--- NOTE | 2017-11-08 07:15 | NUR ---
ms rn initial notes Received patient in bed, asleep, head of bed elevated, no SOB or distress noted. On 02 @ 2lpm via NC and tolerated well. Patient is alert and oriented x 4, verbally responsive and able to make needs known. IV intact and patent, HL only. Left leg elevated with 2 pillows. Call light with in patient reach, will continue to monitor accordingly.
[2017-11-08] MEDS: PANTOPRAZOLE 40 MG TABLET.DR PO SCH (07:55)
[2017-11-08 08:00] VITALS: BP_SYST 145; BP_SYST 155; BP_DIAS 70; BP_DIAS 71
[2017-11-08] MEDS: SERTRALINE HCL 50 MG TABLET PO SCH (08:19)
[2017-11-08] MEDS: ENOXAPARIN SODIUM 40 MG/0.4 ML DISP.SYRIN SQ SCH (08:20)
[2017-11-08] MEDS: LORATADINE 10 MG TABLET PO SCH (08:23)
--- NOTE | 2017-11-08 08:43 | NUR ---
ms rn notes Held claritin due to patient refusal. Explained the risk and benefits x 3 and still refused. Will continue to monitor accordingly.
[2017-11-08] MEDS ORDERED: HOME MED MISCELLANEOUS XX SCH (09:00)
--- NOTE | 2017-11-08 12:00 | NUR ---
ms rn notes Patient refused scheduled tylenol, explained the risk and benefits x 3 and still refused. will continue to monitor.
[2017-11-08] MEDS: HYDROCHLOROTHIAZIDE PO SCH (13:21)
[2017-11-08] MEDS: IRBESARTAN PO SCH (13:21)
[2017-11-08] MEDS: SOD FERRIC GLUC 125 MG in IV NS 0.9% 100 ML IV SCH (14:20)
[2017-11-08 16:00] VITALS: BP 148/69
[2017-11-08] MEDS: LIDOCAINE 5% (PATCH) 1 EA PATCH TP SCH (17:09)
--- NOTE | 2017-11-08 19:09 | NUR ---
ms rn closing notes All needs provided attended, and anticipated. Patient is in stable condition at this time. Endorsed to next shift RN to continue care. Call light with in patient reach.
--- NOTE | 2017-11-08 19:45 | NUR ---
MS RN INITIAL NOTE PT IS IN BED AWAKE AND ALERT, ABLE TO MAKE NEEDS KNOWN. NO SIGNS OF URBAN OR DISTRESS, ON 2L NC BREATHING EVENLY AND UNLABORED . DENIES PAIN AT THIS TIME. LEFT EXTERNAL FIXATION ON LEFT LOWER EXTREMITY IS IN PLACE. ICE PACK PLACED ON LEFT ANKLE. BED IS IN LOW AND LOCKED POSITION, CALL LIGHT WITHIN REACH. WILL CONTINUE TO MONITOR PT.
[2017-11-08 20:00] VITALS: BP 147/76
[2017-11-09] MEDS: ACETAMINOPHEN 325 MG TABLET PO SCH ×3 (05:01→17:08)
--- NOTE | 2017-11-09 06:30 | NUR ---
ms rn closing note pt is in bed awake and alert, no acute changes throughout the shift. left lower leg fixator is in place. all needs were anticipated and met. bed is in low and locked position, call light within reach. will endorse to dayshift.
--- NOTE | 2017-11-09 07:10 | NUR ---
ms rn initial notes Received patient in bed, awake, head of bed elevated, no SOB or distress noted, on 02 @ 2lpm via NC and tolerated well. Alert and oriented x 4, verbally responsive and able to make needs known. IV intact and patent HL only. Pain medication given. Call Light with in patient reach, will continue to monitor accordingly.
[2017-11-09] MEDS: TRAMADOL HCL 50 MG TABLET PO PRN ×3 (07:19→22:28)
[2017-11-09] MEDS: PANTOPRAZOLE 40 MG TABLET.DR PO SCH (07:19)
[2017-11-09 08:00] VITALS: BP 141/84
[2017-11-09] MEDS: HYDROCHLOROTHIAZIDE PO SCH (08:26)
[2017-11-09] MEDS: SERTRALINE HCL 50 MG TABLET PO SCH (08:26)
[2017-11-09] MEDS: IRBESARTAN PO SCH (08:26)
[2017-11-09] MEDS: ENOXAPARIN SODIUM 40 MG/0.4 ML DISP.SYRIN SQ SCH (08:28)
[2017-11-09] MEDS: LORATADINE 10 MG TABLET PO SCH (08:37)
--- NOTE | 2017-11-09 08:38 | NUR ---
ms rn notes Held claritin due to patient refusal. Will continue to monitor.
--- NOTE | 2017-11-09 12:13 | NUR ---
ms rn notes Held tylenol due to patient refusal, explained the risk and benefits x 3 and still refused. Will inform MD to D/C. Will continue to monitor.
[2017-11-09 15:50] VITALS: BP 140/80
[2017-11-09] MEDS: LIDOCAINE 5% (PATCH) 1 EA PATCH TP SCH (16:46)
--- NOTE | 2017-11-09 17:08 | NUR ---
ms rn notes Held tylenol due to patient refusal, explained the risk and benefits x 3 and still refused.
--- NOTE | 2017-11-09 19:11 | NUR ---
ms rn closing notes All needs provided, attended and anticipated. Patient is in stable condition. Endorsed to nest shift RN to continue care. Call light with in patient reach.
--- NOTE | 2017-11-09 19:30 | NUR ---
RN NOTE; RECEIVED PT IN BED AWAKE AND ALERT. BREATHING EVENLY. NO SOB. NAD. SKIN WARM AND DRY,.EXTERNAL RODS IN PLACE. L LEG ELEVATED ON A PILLOW. NO C/O PAIN OR DISCOMFORT AT THIS TIME. NEEDS MET. CALL LIGHT WITHIN REACH, WILL CONT TO MONITOR ,
[2017-11-09 19:35] LABS: LYMPHOCYTES # (AUTO) 0.8 /CMM (0.8-4.8); MONOCYTES # (AUTO) 0.4 /CMM (0.1-1.30)
[2017-11-09 19:43] LABS: INR 0.94 (0.87-1.13)
[2017-11-09 19:47] LABS: BASOPHILS % (AUTO) 0.3 % (0.0-2.0); EOSINOPHILS % (AUTO) 3.5 % (0.0-6.0); HEMATOCRIT 34 % (33-45); LYMPHOCYTES % (AUTO) 12.3 % (20.0-44.0); MEAN CORPUSCULAR HGB CONC 33 g/dl (31.0-36.0); MEAN CORPUSCULAR VOLUME 75 fL (82-100); MONOCYTES % (AUTO) 6.5 % (2.0-12.0); NEUTROPHILS # (AUTO) 5.3 /CMM (1.8-8.9); NEUTROPHILS % (AUTO) 77.4 % (43.0-81.0); PLATELET COUNT (AUTO) 629 /CMM (150-450); RED BLOOD CELL COUNT(AUTO) 4.51 MIL/uL (4.0-5.2); WHITE BLOOD COUNT (AUTO) 6.7 K/uL (4.3-11.0)
[2017-11-09 19:48] LABS: BILIRUBIN,TOTAL 0.3 mg/dL (0.2-1.0); CALCIUM, SERUM 9.6 mg/dL (8.5-10.1); CREATININE 0.8 mg/dL (0.6-1.3); POTASSIUM 3.7 mmol/L (3.5-5.1); TOTAL PROTEIN, SERUM 6.8 g/dL (6.4-8.2)
[2017-11-09 20:00] VITALS: BP 124/74
--- NOTE | 2017-11-09 20:40 | NUR ---
DRESSING CHANGE ON THE MARINA INSERTION SITES X3 DONE. PT TOLERATED IT WELL.
[2017-11-09] MEDS: IV NS 0.9% 1,000 ML IV PRN (21:03)
[2017-11-09] MEDS: ALPRAZOLAM 0.25 MG TABLET PO PRN (22:29)
--- NOTE | 2017-11-09 22:32 | NUR ---
TRAMADOL AND XANAX GIVEN ORDERED PER PT'S REQUEST FOR C/O PAIN AND ANXIETY. WILL CONT TO MONITOR ,
[2017-11-10] VITALS (7 sets, daily range): BP systolic 99–121; BP diastolic 56–79
--- NOTE | 2017-11-10 00:21 | NUR ---
TYLENOL WAS HELD PER PT'S REQUEST . STATED EARLIER NOT TO BE WAKEN UP FOR THE TYLENOL. NO S/S OF PAIN NOTED AT THIS TIME.
[2017-11-10] MEDS: ACETAMINOPHEN 325 MG TABLET PO SCH ×4 (05:11→17:33)
--- NOTE | 2017-11-10 05:11 | NUR ---
HELD TYLENOL. PT NPO FOR SX AT 0800.
[2017-11-10] MEDS ORDERED: ANESTHESIA TRAY IN PYXIS 1 EA TRAY MC ONE (06:55)
[2017-11-10] MEDS ORDERED: BACITRACIN 50000 UNITS/VIAL ONE (06:56)
[2017-11-10] MEDS ORDERED: BUPIVACAINE 0.25% 75 MG/30 ML VIAL ONE ×2 (06:56→13:45)
[2017-11-10] MEDS: PANTOPRAZOLE 40 MG TABLET.DR PO SCH ×2 (07:30→17:47)
--- NOTE | 2017-11-10 07:56 | NUR ---
MS/client strategist Patient taken to operating room for removal of hardware and ORIF. Medical record with patient.
[2017-11-10] MEDS ORDERED: FENTANYL PF 100MCG/2ML AMPUL ONE ×4 (08:18→14:01)
[2017-11-10] MEDS ORDERED: MIDAZOLAM HCL 2 MG/2ML VIAL ONE (08:18)
[2017-11-10] MEDS: LORATADINE 10 MG TABLET PO SCH (09:00)
[2017-11-10] MEDS: SERTRALINE HCL 50 MG TABLET PO SCH ×2 (09:00→17:45)
[2017-11-10] MEDS: HYDROCHLOROTHIAZIDE PO SCH ×2 (09:00→17:46)
[2017-11-10] MEDS: IRBESARTAN PO SCH ×2 (09:00→17:46)
[2017-11-10] MEDS: ENOXAPARIN SODIUM 40 MG/0.4 ML DISP.SYRIN SQ SCH (09:00)
[2017-11-10] MEDS ORDERED: ROCURONIUM BROMIDE 50 MG/5 ML ONE (09:12)
[2017-11-10] MEDS ORDERED: HYDROMORPHONE INJ 2 MG/ML DISP.SYRIN ONE ×2 (10:52→13:29)
[2017-11-10] MEDS ORDERED: BUPIVACAINE MPF 0.75% 30 ML VIAL ONE (13:45)
--- NOTE | 2017-11-10 15:11 | NUR ---
MS/RN Back from OR Patient back from the operating room following removal of external hardware and open reduction internal fixation of left ankle. Upon return, patient placed on tele due to the length of time that she was under anesthesia. Vital signs recorded as per hospital protocol, noted to be hypotensive at 98/56, other vital signs within normal range for patient. Continues to complain of mild to moderate pain in the left ankle, explained that pain medication has been ordered but due to her low BP and the fact that two blocks had been placed whist in recovery room, it would be unsafe to administer any more narcotic medications as this time. Encouraged to try to relax, take deep breaths and try to rest. Dressing to left ankle dry and intact, has sensation to all toes on left foot and able to move accordingly. Leg remains elevated on two pillows, offered to off load right heel but refused. Post op orders entered into the computer, medications faxed to pharmacy. Call light within reach, will continue to monitor and ensure safety.
[2017-11-10] MEDS: CEFAZOLIN SODIUM 2 GM in IV SODIUM CHLORIDE 0.9% 50 ML IV SCH ×2 (15:42→22:10)
[2017-11-10] MEDS: LIDOCAINE 5% (PATCH) 1 EA PATCH TP SCH ×2 (17:00→17:46)
--- NOTE | 2017-11-10 17:15 | NUR ---
MS/RN Medications Evening medications administered as ordered.
--- NOTE | 2017-11-10 18:05 | NUR ---
MS/RN End note Patient remains in stable condition. Post op vital within normal range, blood pressure now 114/78, no fever. Dressing dry and intact, tolerating oral fluids, no nausea or vomiting. IV fluids continue to infuse at 75ml/hr, no signs of infiltration see. Mendosa catheter draining clear colored urine. Pain well controlled, no further pain meds needed. Safety measures in place, will continue to monitor and ensure safety. Will endorse to police shift commander to pass to morning shift to please pre medicate patient at 0830, as physical therapist will see patient for evaluation at 0900.
--- NOTE | 2017-11-10 19:00 | NUR ---
RN OPENING NOTES PT AWAKE AND ALERT. FRIENDS AT BEDSIDE. NO COMPLAINTS OF PAIN, SOB, OR DISTRESS AT THIS TIME. PT IS S/P LEFT ANKLE ORIF. PT HAS A CARRENO INTACT AND DRAINING WELL. PT HAS A RIGHT HAND #24 IV RUNNING NS @75 ML/HR. PT TOLERATING FLUIDS WELL. SAFETY PRECAUTIONS IN PLACE, BED IN LOWEST LOCKED POSITION, X2 SIDE RAILS UP. CALL LIGHT WITHIN REACH WILL CONTINUE TO MONITOR.
[2017-11-10] MEDS: TRAMADOL HCL 50 MG TABLET PO PRN (22:10)
--- NOTE | 2017-11-10 22:10 | NUR ---
PT COMPLAINED OF LEFT ANKLE PAIN (6/). PT REQUESTED PRN TRAMADOL 50 MG. WILL ADMINISTER AND CONTINUE TO MONITOR.
[2017-11-11] MEDS: TRAMADOL HCL 50 MG TABLET PO PRN ×2 (03:02→17:59)
--- NOTE | 2017-11-11 03:02 | NUR ---
RN NOTES PT COMPLAINED OF LEFT ANKLE PAIN (11/08). PT REQUESTED PRN TRAMADOL 50 MG. WILL ADMINISTER AND CONTINUE TO MONITOR.
[2017-11-11] MEDS: MORPHINE SULFATE INJ 4 MG/ML DISP.SYRIN IV PRN ×4 (04:10→19:24)
--- NOTE | 2017-11-11 04:10 | NUR ---
RN NOTES PT COMPLAINED THAT THE PRN TRAMADOL 50MG, DID NOT RELIEVE HER PAIN. PT NOW STATES THAT HER PAIN IS 8/10. PT REQUESTED MORPHINE 4MG. VITAL SIGNS STABLE. WILL ADMINISTER AND CONTINUE TO MONITOR.
[2017-11-11] MEDS: IV NS 0.9% 1,000 ML IV PRN (05:22)
[2017-11-11] MEDS: ACETAMINOPHEN 325 MG TABLET PO SCH ×4 (06:00→18:00)
[2017-11-11 06:44] LABS: EOSINOPHILS % (AUTO) 0.1 % (0.0-6.0); HEMATOCRIT 31 % (33-45); HEMOGLOBIN 9.9 g/dL (11.5-14.8); LYMPHOCYTES # (AUTO) 0.7 /CMM (0.8-4.8); LYMPHOCYTES % (AUTO) 6.4 % (20.0-44.0); MEAN CORPUSCULAR HGB CONC 32 g/dl (31.0-36.0); MEAN CORPUSCULAR VOLUME 79 fL (82-100); MONOCYTES # (AUTO) 0.6 /CMM (0.1-1.30); NEUTROPHILS # (AUTO) 9.3 /CMM (1.8-8.9); NEUTROPHILS % (AUTO) 87.5 % (43.0-81.0); PLATELET COUNT (AUTO) 517 /CMM (150-450); RED BLOOD CELL COUNT(AUTO) 3.95 MIL/uL (4.0-5.2); WHITE BLOOD COUNT (AUTO) 10.6 K/uL (4.3-11.0)
--- NOTE | 2017-11-11 06:49 | NUR ---
RN CLOSING NOTES PT AWAKE AND ALERT. NO COMPLAINTS OF PAIN, SOB, OR DISTRESS AT THIS TIME. PT IS S/P LEFT ANKLE ORIF. PT HAS A CARRENO INTACT AND DRAINING WELL. PT HAS A RIGHT HAND #24 IV RUNNING NS @75 ML/HR. PT TOLERATING FLUIDS WELL. SAFETY PRECAUTIONS IN PLACE, BED IN LOWEST LOCKED POSITION, X2 SIDE RAILS UP. CALL LIGHT WITHIN REACH WILL ENDORSE TO DAY SHIFT NURSE FOR CONTINUITY OF CARE.
[2017-11-11 06:53] LABS: CALCIUM, SERUM 8.9 mg/dL (8.5-10.1); CREATININE 0.8 mg/dL (0.6-1.3); MAGNESIUM 1.7 mg/dL (1.8-2.4); POTASSIUM 4.1 mmol/L (3.5-5.1)
--- NOTE | 2017-11-11 07:25 | NUR ---
MS/RN OPENING NOTE PATIENT ALERT AND ORIENTED X4. DENIES SOB. RESPIRATION REGULAR AND UNLABORED. DENIES PAIN AT THIS TIME. RIGHT HAND G 24 PATENT AND IV INFUSING WITH NO S/S INFILTRATION. BED LOW AND LOCKED. SIDE RAILS UP X2. CALL LIGHT WITHIN REACH. WILL CONTINUE TO MONITOR.
[2017-11-11 08:00] VITALS: BP 151/82
[2017-11-11] MEDS: CALCIUM CARB 600MG /VIT D 1 EACH TABLET PO SCH (08:29)
[2017-11-11] MEDS: LORATADINE 10 MG TABLET PO SCH (08:29)
[2017-11-11] MEDS: CEFAZOLIN SODIUM 2 GM in IV SODIUM CHLORIDE 0.9% 50 ML IV SCH (08:29)
[2017-11-11] MEDS: SERTRALINE HCL 50 MG TABLET PO SCH (08:29)
[2017-11-11] MEDS: PANTOPRAZOLE 40 MG TABLET.DR PO SCH (08:29)
[2017-11-11] MEDS: ENOXAPARIN SODIUM 40 MG/0.4 ML DISP.SYRIN SQ SCH (08:33)
[2017-11-11] MEDS: IRBESARTAN PO SCH (08:33)
[2017-11-11] MEDS: HYDROCHLOROTHIAZIDE PO SCH (08:33)
[2017-11-11] MEDS ORDERED: ACETAMINOPHEN 325 MG TABLET PO ONE (09:00)
--- NOTE | 2017-11-11 09:10 | NUR ---
MS/RN NOTE TEMP 99.2. NEW ORDER OF TYLENOL 650 MG IS RECEIVED FROM JOSESITO PRATHER. NOTED AND CARRIED OUT.
--- NOTE | 2017-11-11 09:50 | NUR ---
MS/RN NOTE PATIENT TEMP 97.9.
[2017-11-11] MEDS ORDERED: MAGNESIUM OXIDE 400 MG TABLET PO ONE (10:00)
--- NOTE | 2017-11-11 10:00 | NUR ---
MS/RN NOTE PER MONICA WHEAT NEW ORDER FOR PT EVAL IS RECEIVED. READ BACK, VERIFIED. NOTED AND CARRIED OUT.
--- NOTE | 2017-11-11 10:50 | NUR ---
MS/RN NOTE PATIENT REFUSED MAG-OXIDE 400 MG DESPITE EXPLAINING RISKS AND BENEFITS MULTIPLE TIMES.
--- NOTE | 2017-11-11 12:05 | NUR ---
MS/RN NOTE JOSESITO PRATHER IS MADE AWARE THAT THE PATIENT REFUSED MAG-OXIDE 400 MG. JOSESITO PRATHER WITH NO NEW ORDER.
--- NOTE | 2017-11-11 12:21 | NUR ---
MS/RN NOTE PATIENT REFUSED TYLENOL 650 MG. PATIENT DENIES PAIN AT THIS TIME AND TEMP IS 97.3.
[2017-11-11] MEDS ORDERED: Calcium Carb 600MG /Vit D PO (13:53)
[2017-11-11] MEDS ORDERED: TRAM50TA2 PO (13:53)
[2017-11-11] MEDS ORDERED: MAGN400O6 PO (13:53)
[2017-11-11] MEDS ORDERED: ONDA4TAB5 PO (13:53)
[2017-11-11] MEDS ORDERED: ENOX40DI SQ (13:53)
[2017-11-11] MEDS ORDERED: ACET325T53 PO (13:53)
--- NOTE | 2017-11-11 13:56 | NUR ---
gospel worker received a call from pt's case picker Allyn Coley stating that pt. would like information on Disability insurance. SW met with pt. bedside. Pt. is alert and oriented x 4. SW gave pt. the Disability form and explained the process to her.
[2017-11-11 15:20] VITALS: BP 131/72
--- NOTE | 2017-11-11 15:26 | NUR ---
MS/RN NOTE 1050 MORPHINE SULFATE WAS ADMINISTERED BUT DID NOT REGISTER DUE TO COMPUTER SHUT OFF AND NOT HAVING THE SCANNED MEDICATION INFORMATION. DUE TO THIS REASON HAD TO DO UNSCHEDULED ENTRY FOR 1050 MORPHINE SULFATE. PHARM IS MADE AWARE AND ADRY HOLLINS WITNESSED.
[2017-11-11 16:00] VITALS: BP 135/67
[2017-11-11] MEDS: LIDOCAINE 5% (PATCH) 1 EA PATCH TP SCH (17:00)
--- NOTE | 2017-11-11 19:50 | NUR ---
MS/CONCRETE VAULT MAKER; RECEIVED PT IN BED AWAKE, ALERT AND ORIENTED. I ASKED THE PT HOW SHE IS SHE SAID BETTER NOW BECAUSE I WAS GIVEN MORPHINE SHOT AND I ASKED THE PAIN LEVEL SHE SAID 6 OUT OF 10. HL ON LAC # 22 INTACT. LT LOWER LEG WITH WENDY WRAP DRESSING INTACT AND ELEVATED ON 2 PILLOWS. PT ABLE TO MOVE A LITTLE BIT HER TOES. FC INTACT WITH CLEAR YELLOW URINE. BED ON LOWER POSITION AND LOCKED FOR SAFETY. SIDE RAILS X 2 ARE UP FOR SAFETY. CALL LIGHT WITHIN REACH.
--- NOTE | 2017-11-11 19:55 | NUR ---
MS/RN CLOSING NOTE PATIENT IN BED AWAKE. ALERT AND ORIENTED X4. DENIES SOB. DENIES PAIN AT THIS TIME. RESPIRATION REGULAR AND UNLABORED. CARRENO CATH DRAINING CLEAR AND YELLOW COLOR URINE. NO BLADDER DISTENSION NOTED. LEFT FOOT ELEVATED TO REDUCE SWELLING. BED LOW AND LOCKED. SIDE RAILS UP X3. CALL LIGHT WITHIN REACH. WILL ENDORSE TO WIRE HARNESS ASSEMBLER.
[2017-11-11 20:02] VITALS: BP 139/72
--- NOTE | 2017-11-11 21:15 | NUR ---
MS/POWER TRANSMISSION ENGINEER; PT VOIDED USED BEDPAN TO CLEAR YELLOW URINE. FELIZ CARE DONE. PT ASKED FOR XANAX. SO XANAX 0. 25 MG 1 TAB. PO Q8 PRN GIVEN ORDERED.
[2017-11-11] MEDS: ALPRAZOLAM 0.25 MG TABLET PO PRN (21:18)
--- NOTE | 2017-11-11 22:00 | NUR ---
MS/VARNISH MELTER; C/O PAIN LT ANKLE WITH PAIN LEVEL OF 6 OUT OF 10. BP 138/ 71 , MT 75 . PERCOSET 5-325 MG 1 TAB. PO Q4 PRN GIVEN ORDERED.
--- NOTE | 2017-11-11 22:00 | NUR ---
MS/SYSTEMS PROTECTION TECHNICIAN; C/O PAIN LT ANKLE WITH PAIN LEVEL 6 OUT OF 10. BP 138/71 , P 75. PERCOSET 5-325 MG 1 TAB. PO Q4 PRN GIVEN ORDERED.
[2017-11-11] MEDS: oxyCODONE/APAP (5/325 MG) 1 UDTAB TABLET PO PRN (22:04)
--- NOTE | 2017-11-12 | NUR ---
MS/CASH GRAIN FARMER; PT REFUSED TYLENOL AT THIS TIME AND EVEN CHARGE NURSE WAS AWARE.
--- NOTE | 2017-11-12 02:50 | NUR ---
MS/INTERNATIONAL EXCHANGE COORDINATOR; C/OPAIN LT ANKLE WITH PAIN LEVEL OF 7 OUT OF 10. BP ON RA 151/ 77 , P 67 PERCOSET 5-325 MG 1 TAB. PO Q4 PRN GIVEN. PT ALSO VOIDED USED BEDPAIN TO CLEAR YELLOW URINE 250 ML FELIZ CARE DONE.
[2017-11-12] MEDS: oxyCODONE/APAP (5/325 MG) 1 UDTAB TABLET PO PRN ×4 (02:54→15:24)
[2017-11-12] MEDS: ACETAMINOPHEN 325 MG TABLET PO SCH ×3 (05:55→13:56)
[2017-11-12] MEDS: PANTOPRAZOLE 40 MG TABLET.DR PO SCH (06:02)
[2017-11-12 06:49] LABS: BASOPHILS % (AUTO) 0.6 % (0.0-2.0); EOSINOPHILS % (AUTO) 2.2 % (0.0-6.0); HEMATOCRIT 32 % (33-45); HEMOGLOBIN 10.1 g/dL (11.5-14.8); LYMPHOCYTES # (AUTO) 0.9 /CMM (0.8-4.8); LYMPHOCYTES % (AUTO) 13.8 % (20.0-44.0); MEAN CORPUSCULAR HGB CONC 32 g/dl (31.0-36.0); MEAN CORPUSCULAR VOLUME 79 fL (82-100); MONOCYTES # (AUTO) 0.5 /CMM (0.1-1.30); MONOCYTES % (AUTO) 7.8 % (2.0-12.0); NEUTROPHILS # (AUTO) 4.9 /CMM (1.8-8.9); NEUTROPHILS % (AUTO) 75.6 % (43.0-81.0); PLATELET COUNT (AUTO) 486 /CMM (150-450); RDW COEFFICIENT OF VARIATION 25.4 (11.5-15.0); WHITE BLOOD COUNT (AUTO) 6.5 K/uL (4.3-11.0)
--- NOTE | 2017-11-12 07:00 | NUR ---
MS/PHARMACY TECHNICIAN ASSISTANT; SLEPT FAIRLY. VOIDED TO THE [facility] WITH ESTIMATOR PAPERBOARD BOXES HELP PER PT. WILL ENDORSE TO THE DAY SHIFT NURSE.
[2017-11-12 07:05] LABS: CALCIUM, SERUM 9.4 mg/dL (8.5-10.1); CREATININE 0.8 mg/dL (0.6-1.3); POTASSIUM 4.1 mmol/L (3.5-5.1)
--- NOTE | 2017-11-12 07:08 | NUR ---
MS/RN OPENING NOTE PATIENT IN BED AWAKE. ALERT AND ORIENTED X4. DENIES SOB. RESPIRATION REGULAR AND UNLABORED. PATIENT RATED PAIN 6/10 AND PRN PAIN MED GIVEN BY HIM ANALYST AND WAITING FOR MEDICATION TO WORK. RIGHT HAND G 24 PATENT AND SALINE LOCKED. LEFT ANKLE ON 2 PILLOWS. BED LOW AND LOCKED. SIDE RAILS UP X2. CALL LIGHT WITHIN REACH. WILL CONTINUE TO MONITOR.
[2017-11-12 08:00] VITALS: BP 103/66
[2017-11-12] MEDS: CALCIUM CARB 600MG /VIT D 1 EACH TABLET PO SCH (08:44)
[2017-11-12] MEDS: SERTRALINE HCL 50 MG TABLET PO SCH (08:44)
[2017-11-12] MEDS: IRBESARTAN PO SCH (08:44)
[2017-11-12] MEDS: HYDROCHLOROTHIAZIDE PO SCH (08:44)
[2017-11-12] MEDS: ENOXAPARIN SODIUM 40 MG/0.4 ML DISP.SYRIN SQ SCH (08:49)
[2017-11-12 11:30] VITALS: BP 132/78
--- NOTE | 2017-11-12 14:15 | NUR ---
MS/RN NOTE THE FOLLOWING MEDICATIONS SERTRALINE HCL 50MG, OMEPRAZOLE 20 MG, ALAVERT 10 MG, ZANTAC 150 MG, TYLEX CD 500 MH/30 MG AND IRBESARTAN/HCTZ 300-12.5MH ARE RETURNED TO THE PATIENT. THE ABOVE MENTIONED MEDICATIONS WERE HER PERSONAL MEDICATIONS WHICH WERE SAVED IN PHARM.
--- NOTE | 2017-11-12 16:12 | NUR ---
MS/RN CLOSING NOTE PATIENT ALERT AND ORIENTED X4. DISCHARGE INSTRUCTIONS SUCH MEDICATION EDUCATION. NON-WEIGHT BEARING TO LEFT LOWER EXTREMITY, FOLLOW UP APPT WITH DR EARL AND MORE GIVE \N TO THE PATIENT AND THE PATIENT VERBALIZED UNDERSTANDING. THE PATIENT. ALL BELONGINGS GIVEN TO THE PATIENT AND SHE SIGNED THE PAPER. PATIENT IS PICKED UP BY SON. PATIENT LEFT THE HOSPITAL IN STABLE CONDITION.
== END 2017-11-12 15:46 | disposition home or self-care (01) | DRG 492 ==
LOC: ER 21:44 → MED 11-04 01:02
PROVIDERS: ADMIT Nurse Practitioner Acute Care; ATTEND Nurse Practitioner Acute Care
PROC: 30233N1 Transfusion of Nonautologous Red Blood Cells into Peripheral Vein, Percutaneous Approach (ICD-10-PCS; 2017-11-04)
PROC: 0QSK35Z Reposition Left Fibula with External Fixation Device, Percutaneous Approach (ICD-10-PCS; 2017-11-05)
PROC: 0QSH35Z Reposition Left Tibia with External Fixation Device, Percutaneous Approach (ICD-10-PCS; 2017-11-05)
PROC: 0QSM35Z Reposition Left Tarsal with External Fixation Device, Percutaneous Approach (ICD-10-PCS; 2017-11-05)
PROC: 0QSK04Z Reposition Left Fibula with Internal Fixation Device, Open Approach (ICD-10-PCS; 2017-11-10)
PROC: 0QPKX5Z Removal of External Fixation Device from Left Fibula, External Approach (ICD-10-PCS; 2017-11-10)
PROC: 0QPHX5Z Removal of External Fixation Device from Left Tibia, External Approach (ICD-10-PCS; 2017-11-10)
PROC: 0QPMX5Z Removal of External Fixation Device from Left Tarsal, External Approach (ICD-10-PCS; 2017-11-10)
PROC: 0QSH04Z Reposition Left Tibia with Internal Fixation Device, Open Approach (ICD-10-PCS; principal; 2017-11-10 09:12)
DX: S82.852A Displaced trimalleolar fracture of left lower leg, initial encounter for closed fracture (principal); N17.0 Acute kidney failure with tubular necrosis; E87.1 Hypo-osmolality and hyponatremia; D69.6 Thrombocytopenia, unspecified; I10 Essential (primary) hypertension; D64.9 Anemia, unspecified; E11.9 Type 2 diabetes mellitus without complications; M81.0 Age-related osteoporosis without current pathological fracture; Z85.41 Personal history of malignant neoplasm of cervix uteri; E61.1 Iron deficiency; E86.1 Hypovolemia; W18.30XA Fall on same level, unspecified, initial encounter; Y92.89 Other specified places as the place of occurrence of the external cause; F41.9 Anxiety disorder, unspecified; F32.9 Major depressive disorder, single episode, unspecified
CPT/HCPCS: 36415; 71045-TC; 73600-TC; 73610-TC; 73700-TC; 80048-TC; 80053-TC; 80061-TC; 82306; 83021; 83540-TC; 83735-TC; 84100-TC; 84439-TC; 84443-TC; 85025-TC; 85660; 85730-TC; 86850-TC; 86921-TC; 93307-TC; 97110-TC; 97116-TC; 97530-TC; A4216; A4606; A6253; A6402; A6403; J0690; J1100; J1170; J1650; J1885; J2250; J2270; J2405; J2704; J2916; J3010; J3490; J7030; J7050; J7060; P9016-BL; Z7610

== ENCOUNTER 2020-01-12 11:57 | Inpatient (IN) | payer MEDICARE, BC ==
[~2020-01-12] VITALS: Ht 149.9 cm; Wt 76.7 kg
[2020-01-12] VITALS (13 sets, daily range): BP systolic 115–151; BP diastolic 64–98
[~2020-01-12 11:57] MED LIST: ACET325T53 PO; Calcium Carb 600MG /Vit D PO; ENOX40DI SQ; IRBE1TAB41 PO; IRBE1TAB43 PO; LIDO700A30 TP; LORA-545 PO; MAGN400O6 PO; OMEP20CA15 PO; ONDA4TAB5 PO; RANI-655 PO; SERT50TA PO; TRAM1TAB PO; TRAM50TA2 PO
--- NOTE | 2020-01-12 12:21 | NUR ---
"Been Feeling tired/fatique/SOB x1mo went to see MD and was called this am to come in for low H/H". PT AAOX4, VSS. RR EVEN & UNLABORED. DENIES CP, DIZZINESS, N/V/D AT THIS TIME. PT SEEN & EVAL'D BY DR. CERNA. PLACED ON COMMERCIAL ENERGY AUDITOR, NSR. WILL CONT TO MONITOR.
[2020-01-12 12:25] LABS: BASOPHILS % (AUTO) 1.4 % (0.0-2.0); EOSINOPHILS % (AUTO) 4.3 % (0.0-6.0); HEMATOCRIT 22 % (33-45); LYMPHOCYTES # (AUTO) 0.8 /CMM (0.8-4.8); LYMPHOCYTES % (AUTO) 22.5 % (20.0-44.0); MEAN CORPUSCULAR HGB CONC 30 g/dl (31.0-36.0); MEAN CORPUSCULAR VOLUME 79 fL (82-100); MONOCYTES # (AUTO) 0.3 /CMM (0.1-1.30); MONOCYTES % (AUTO) 9.4 % (2.0-12.0); NEUTROPHILS # (AUTO) 2.2 /CMM (1.8-8.9); NEUTROPHILS % (AUTO) 62.4 % (43.0-81.0); PLATELET COUNT (AUTO) 471 /CMM (150-450); WHITE BLOOD COUNT (AUTO) 3.6 K/uL (4.3-11.0)
[2020-01-12 12:30] LABS: HEMOGLOBIN 6.7 g/dL (11.5-14.8)
[2020-01-12 12:36] LABS: CARBON DIOXIDE 25 mmol/L (21-32); CHLORIDE 106 mmol/L (98-107); CREATININE 0.9 mg/dL (0.6-1.3); GLUCOSE 123 mg/dL (74-106); POTASSIUM 3.3 mmol/L (3.5-5.1); SODIUM SERUM 140 mmol/L (136-145); UREA NITROGEN, BLOOD 22 mg/dL (7-18)
--- NOTE | 2020-01-12 12:51 | NUR ---
CALLED NURSING SUP REQUESTING BED.
[2020-01-12 12:57] LABS: EOSINOPHILS % (MANUAL) 1 % (0-4); LYMPHOCYTES % (MANUAL) 21 % (16-48); MONOCYTES % (MANUAL) 14 % (0-11.0); NEUTROPHILS % (MANUAL) 64 (42-76)
[2020-01-12] MEDS ORDERED: TRAM50TA2 PO (13:00)
[2020-01-12] MEDS ORDERED: ESCI5TAB PO (13:00)
[2020-01-12] MEDS ORDERED: OLME40TA18 PO (13:00)
[2020-01-12] MEDS ORDERED: TOPI25TA49 PO (13:00)
[2020-01-12] MEDS ORDERED: VENL75CA62 PO (13:00)
[2020-01-12] MEDS ORDERED: IBUP-23 PO (13:00)
[2020-01-12] MEDS ORDERED: HYDR12.55 PO (13:00)
--- NOTE | 2020-01-12 13:04 | NUR ---
CALLED [employer] AGENCY CASHIER WAS PAGED.
--- NOTE | 2020-01-12 15:17 | NUR ---
PT SITTING UP, AAOX4. RR EVEN & UNLABORED. DENIES CP, SOB, DIZZINESS, N/V AT THIS TIME. WILL CONT TO MONITOR.
--- NOTE | 2020-01-12 15:41 | NUR ---
REPORT GIVEN TO ADRY WALDEN FOR GABY
--- NOTE | 2020-01-12 16:10 | NUR ---
WHEAT GROWERTELECOMMUNICATION TOWER TECHNICIAN NOTE PT TRANSPORTED TO UNIT AT THIS TIME VIA GURNEY FROM ER. PT A/O x4, FACE SYMMETRICAL, PINK MOIST LIPS. NO JVD NOTED.. Vital signs: BP 134/71 HR 89, RR 16, T 97.1 SPO2 98% ON RA. PT ON EXTERNAL DIRECTOR RADIO READING NSR IN THE 80s. RESPIRATIONS EVEN AND UNLABORED WITH EQUAL RISE AND FALL IN CHEST. No SOB NOTED, NO S/S OF ANY ACUTE DISTRESS NOTED. NO C/O PAIN AT THIS TIME. PT REMAINS AFEBRILE. SKIN IS WARM, PINK AND DRY TO TOUCH. IV ACCESS IN RAC G#18, INTACT AND PATENT. ACTIVE BOWEL SOUNDS IN ALL QUADRANT. PT AMBULATORY. CAPILLARY REFILL <3SECONDS. BELONGINGS ACCOUNTED FOR, SIGNED BY PATIENT AND FILED IN CHART. SKIN INTACT. SAFETY PRECAUTIONS IN PLACE. BED IN LOWEST LOCKED POSITION, HOB ELEVATED, CALL LIGHT WITHIN REACH, BREAKS ON, SIDE RAILS UP. WILL CONTINUE TO MONITOR
--- NOTE | 2020-01-12 18:04 | NUR ---
PT VTE SCORE OF 2, ORDERED DVT PER ORDER, WILL CONTINUE TO MONITOR
[2020-01-12] MEDS ORDERED: ZOLPIDEM TARTRATE 5 MG TABLET PO PRN (18:30)
[2020-01-12] MEDS ORDERED: Z GUARD REMEDY 2 OZ OINT TP PRN (18:30)
[2020-01-12] MEDS ORDERED: ONDANSETRON HCL/PF 4 MG/2 ML VIAL IVP PRN (18:30)
[2020-01-12] MEDS ORDERED: HYDROCODONE/APAP 5/325MG 1 EACH TABLET PO PRN (18:30)
[2020-01-12] MEDS ORDERED: MAG HYDROX/AL HYDROX/SIMETH 30 ML UDC PO PRN (18:30)
[2020-01-12] MEDS ORDERED: ACETAMINOPHEN 325 MG TABLET PO PRN (18:30)
[2020-01-12] MEDS ORDERED: MAGNESIUM HYDROXIDE 30 ML UDC PO PRN (18:30)
--- NOTE | 2020-01-12 18:53 | NUR ---
RECEIVED ORDER FOR BLOOD TRANSFUSION FROM DR CASTELLANO. BLOOD TRANSFUSION CONSENT SIGNED BY PATIENT. BLOOD PICKED UP FROM LAB. VERIFIED BY TWO NURSES AT PT'S BEDSIDE AT THIS TIME. PRE-BLOOD TRANSFUSION ARE, BP 128/67 HR 80, RR 18, T 97.9, SPO2 99. BLOOD TRANSFUSION STARTED AT THIS TIME. PATIENT EDUCATED TO REPORT ADVERSE SIGNS AND SYMPTOMS OF TRANSFUSION REACTION, BACK PAIN, CHILLS, FEVER. PT VERBALIZED UNDERSTANDING. WILL CONTINUE TO MONITOR
--- NOTE | 2020-01-12 19:08 | NUR ---
PT ONGOING BLOOD TRANSFUSION, NO C/O ADVERSE REACTIONS TO TRANSFUSION. PT REMAINS AFEBRILE, NO CHILLS, NO FEVER. VS 138/68, HR 103, RR 18, T 98.8, SPO2 97%. WILL CONTINUE TO MONITOR
--- NOTE | 2020-01-12 20:03 | NUR ---
TREASURY MANAGEMENT SALES CONSULTANT CLOSING NOTES PT AWAKE IN BED AT THIS TIME. PT REMAINED STABLE THROUGHOUT SHIFT. PT KEPT CLEAN AND DRY. ALL CARE, NEEDS, TREATMENT AND MEDICATIONS ADMINISTERED ANTICIPATED PER ORDER. SAFETY PRECAUTIONS IN PLACE. BED IN LOWEST LOCKED POSITION, HOB ELEVATED, CALL LIGHT WITHIN REACH, BREAKS ON, SIDE RAILS UP. WILL ENDORSE TO RESEARCH PROJECT COORDINATOR NURSE
--- NOTE | 2020-01-12 20:05 | NUR ---
NATUROPATH: RECEIVED REPORT FROM NADER RN. MET WITH PT IN THE ROOM, PT RECEIVED WITH ONGOING 1ST UNIT OF PRBC AT 120 ML/HR. PT HAS RIGHT AC G 18 IV ACCESS PATENT AND FLUSHING WELL. PT IS A/O X4, ON RA, RESPIRATIONS EVEN AND UNLABORED. ON TELE, SINUS RHYTHM HR 85. PT DENIES ANY CHEST PAIN OR DISCOMFORT AT THIS TIME. DISCUSSED PLAN OF CARE TO PT. SCD IN USE. NO CHEMICAL PROPHYLAXIS, PT H/H IS LOW 6.7/22. SAFETY PRECAUTIONS FOR FALL INITIATED, CALL LIGHT IN REACH, WILL CONTINUE MONITORING PT.
--- NOTE | 2020-01-12 21:46 | NUR ---
COMPLETION OF 1ST UNIT PRBC: 1ST UNIT PRBC TRANSFUSION COMPLETED AT THIS TIME. LATEST TEMP 99.0, INFORMED EPIC HOSPITALIST, PER TELEPHONE ORDER RECEIVED, OKAY TO ADMINISTER TYLENOL PO. AND CONTINUE WITH BLOOD TRANSFUSION. NO S/S OF BLOOD TRANSFUSION REACTION NOTED. WILL CONTINUE MONITORING PT.
--- NOTE | 2020-01-12 21:50 | NUR ---
PRN TYLENOL: PRN TYLENOL ADMINISTERED FOR T 99.0, PER MD ORDER. COOLING MEASURES PROVIDED. WILL CONTINUE TO MONITOR AND REASSESS.
--- NOTE | 2020-01-12 21:58 | NUR ---
RN NOTES: CONTACTED BLOOD BANK, ASK ABOUT THE 2ND UNIT, PER BLOOD BANK, BLOOD ISNT READY YET, AND WILL POST IN COMPUTER/CYTIMMUNE SCIENCES ONCE BLOOD IS READY/AVAILABLE.
--- NOTE | 2020-01-12 22:40 | NUR ---
RN NOTES: RECEIVED CALL FROM BLOOD BANK, BLOOD IS READY.
--- NOTE | 2020-01-12 23:00 | NUR ---
2nd unit prbc: blood picked up. pre transfusion vs taken and recorded. blood cosigned/witnessed/verified with another rn gonzález. will stay with the pt for 15-20mins to monitor for any s/s of blood transfusion reaction.
[2020-01-13] VITALS: BP_SYST 115; BP_SYST 132; BP_DIAS 71; BP_DIAS 72
[2020-01-13 00:30] VITALS: BP 163/95
[2020-01-13 01:10] VITALS: BP 161/73
--- NOTE | 2020-01-13 01:10 | NUR ---
completion of 2nd unit prbc transfusion: completed 2nd unit of prbc transfusion at this time. normal saline infusing. pt denies any s/s of blood transfusion reaction. remains afebrile. vs taken and recorded. will continue monitoring pt.
--- NOTE | 2020-01-13 01:20 | NUR ---
rn notes: pt complained that bathroom is very dirty. contacted evs to please clean the restroom. however pt unable to wait any longer as she needed to urinate. assigned rn and outreach associate disinfect/clean the toilet bowl, door handles and sink for the pt.
--- NOTE | 2020-01-13 01:52 | NUR ---
rn notes/refusal for tele monitoring: pt removed tele box, stated it makes her itchy and she doesnt have any heart problem, claiming its already good 6hrs that she was on tele montior. education provided to pt regarding risk and benefits of monitoring, especially in her case, pt a/o x4, fernando to refused. notified [facility] hospitalist of pt's refusal.
[2020-01-13 04:00] VITALS: BP 120/74
--- NOTE | 2020-01-13 06:47 | NUR ---
End of shift report: Pt remains a/o x4, on ra, refused tele monitoring despite providing education. Denies any chest pain or sob. s/p 2unit prbc transfusion. Am labs drawn. No s/s of active bleeding noted. PLAN OF CARE: Monitoring h/h. Vs remains stable, needs attended. Safety precautions for fall remains engaged, call light in reach, will endorse to day martha Ren for continuity of care.
[2020-01-13 07:06] LABS: EOSINOPHILS % (AUTO) 3.1 % (0.0-6.0); HEMATOCRIT 28 % (33-45); HEMOGLOBIN 8.8 g/dL (11.5-14.8); LYMPHOCYTES # (AUTO) 0.8 /CMM (0.8-4.8); LYMPHOCYTES % (AUTO) 19.1 % (20.0-44.0); MEAN CORPUSCULAR HGB CONC 32 g/dl (31.0-36.0); MEAN CORPUSCULAR VOLUME 82 fL (82-100); MONOCYTES # (AUTO) 0.4 /CMM (0.1-1.30); MONOCYTES % (AUTO) 9.6 % (2.0-12.0); NEUTROPHILS # (AUTO) 2.9 /CMM (1.8-8.9); NEUTROPHILS % (AUTO) 67.2 % (43.0-81.0); PLATELET COUNT (AUTO) 410 /CMM (150-450); WHITE BLOOD COUNT (AUTO) 4.3 K/uL (4.3-11.0)
[2020-01-13 07:25] LABS: CALCIUM, SERUM 8.4 mg/dL (8.5-10.1); CREATININE 0.9 mg/dL (0.6-1.3); MAGNESIUM 1.9 mg/dL (1.8-2.4); POTASSIUM 3.5 mmol/L (3.5-5.1)
[2020-01-13] MEDS ORDERED: PANTOPRAZOLE 40 MG TABLET.DR PO SCH (07:30)
--- NOTE | 2020-01-13 07:34 | NUR ---
INVESTMENT ADVISOR OPENING NOTES RECEIVED PATIENT IN BED, AWAKE, A/O X4. PATIENT IS ON ROOM AIR; BREATHING IS EVEN AND UNLABORED; NO SOB PRESENT THIS TIME. PATIENT REFUSES TELE MONITORING. 2 UNITS PRBC TRANSFUSED AT NIGHT. RAC HL G#18 PRESENT AND INTACT; FLUSHING WELL. NO COMPLAINS OF PAIN. SAFETY PRECAUTIONS IN PLACE; BED IN LOW POSITION AND LOCKED, RAILS UP X2, CALL LIGHT WITHIN REACH. WILL CONTINUE TO MONITOR PATIENT.
[2020-01-13 08:34] VITALS: BP 150/80
[2020-01-13] MEDS ORDERED: FERR325T23 PO (09:51)
--- NOTE | 2020-01-13 10:40 | NUR ---
DISCHARGE NOTES PATIENT DISCHARGED HOME IN MEDICALLY STABLE CONDITION. PATIENT IS ON ROOM AIR, BREATHING IS EVEN AND UNLABORED. VS WITHIN NORMAL LIMITS. PATIENT STATED SHE WANTS HOME AND WILL TAKE HER MEDICATIONS AT HOME SHE USUALLY DOES. ALL DISCHARGE PAPERWORK READY AND SIGNED BY PATIENT. ALL BELONGINGS ACCOUNTED FOR AND VALUABLE FORM SIGNED WELL. SKIN INTACT; NO PICS TAKEN. UPON DISCHARGE TEACHING PROVIDED REGARDING PRESCRIBED MEDICATION. PATIENT VERBALIZED UNDERSTANDING. BEFORE LEAVING THE UNIT IV ACCESS WAS REMOVED WITH WRISTBAND. PATIENT LEFT THE HOSPITAL VIA PRIVATE CAR ACCOMPANIED BY RN AT 1035.
== END 2020-01-13 10:40 | disposition home or self-care (01) | DRG 812 ==
LOC: ER 11:58 → TELE 15:54
PROVIDERS: ADMIT Student in an Organized Health Care Education/Training Program; ATTEND Student in an Organized Health Care Education/Training Program
PROC: 30233N1 Transfusion of Nonautologous Red Blood Cells into Peripheral Vein, Percutaneous Approach (ICD-10-PCS; principal; 2020-01-12)
DX: D64.9 Anemia, unspecified (principal); E11.9 Type 2 diabetes mellitus without complications; I10 Essential (primary) hypertension; D70.9 Neutropenia, unspecified; E87.6 Hypokalemia; Z90.710 Acquired absence of both cervix and uterus; Z92.3 Personal history of irradiation; Z92.21 Personal history of antineoplastic chemotherapy; Z85.41 Personal history of malignant neoplasm of cervix uteri; Z79.899 Other long term (current) drug therapy; R53.1 Weakness; D47.3 Essential (hemorrhagic) thrombocythemia
CPT/HCPCS: 36415; 71045-TC; 80048-TC; 80061-TC; 83735-TC; 84100-TC; 84484-TC; 85025-TC; 85730-TC; 86850-TC; 86921-TC; 87081-TC; C9803-CS; G0378; J7050; P9016-BL